=== PATIENT | female | born 1995 | race Caucasian/White ===

== ENCOUNTER → 2018-06-01 13:00 | Outpatient (CLI) | payer OTHER | END | disposition home or self-care (01) | LOC: D.MRI 13:00 | PROVIDERS: ATTEND Nurse Practitioner Family | DX: M41.85 Other forms of scoliosis, thoracolumbar region (principal) ==

== ENCOUNTER 2019-01-23 21:37 | Emergency (ER) | payer MEDICAID ==
[~2019-01-23] VITALS: Ht 170.2 cm; Wt 100.0 kg
[2019-01-23 21:51] VITALS: Ht 170.2 cm; Wt 100.0 kg
[2019-01-23] MEDS ORDERED: [UNRECOGNIZED DRUG - REMARK] (21:56)
[2019-01-23] MEDS ORDERED: BIRTH CONTROL (21:56)
[2019-01-23] MEDS ORDERED: UNK CHOLESTEROL MED (21:57)
[2019-01-23] MEDS ORDERED: TORADOL10 MG PO (23:15)
[2019-01-23 23:24] VITALS: BP 123/66
== END 2019-01-23 23:25 | disposition home or self-care (01) ==
LOC: D.ER 21:37
DX: M25.512 Pain in left shoulder (principal); R51 Headache; S13.4XXA Sprain of ligaments of cervical spine, initial encounter; V47.0XXA Car driver injured in collision with fixed or stationary object in nontraffic accident, initial encounter; Y93.9 Activity, unspecified; Y92.9 Unspecified place or not applicable; S29.012A Strain of muscle and tendon of back wall of thorax, initial encounter; E78.5 Hyperlipidemia, unspecified

== ENCOUNTER 2019-04-26 22:37 | Emergency (ER) | payer OTHER ==
[~2019-04-26] VITALS: Ht 170.2 cm; Wt 113.6 kg
[~2019-04-26 22:37] MED LIST: BIRTH CONTROL; TORADOL10 MG PO; UNK CHOLESTEROL MED; [UNRECOGNIZED DRUG - REMARK]
[2019-04-26 22:42] VITALS: BP 131/79; Ht 170.2 cm; Wt 113.6 kg
[2019-04-27] MEDS ORDERED: ZPAK PO (00:17)
[2019-04-27] MEDS ORDERED: PROAIR HFA8.5 G1 INH (00:17)
== END 2019-04-27 01:04 | disposition home or self-care (01) ==
LOC: D.ER 22:37
DX: J40 Bronchitis, not specified as acute or chronic (principal); E78.5 Hyperlipidemia, unspecified

== ENCOUNTER 2019-05-02 10:59 | Emergency (ER) | payer OTHER ==
[~2019-05-02] VITALS: Ht 170.2 cm; Wt 90.9 kg
[~2019-05-02 10:59] MED LIST changes: +PROAIR HFA8.5 G1 INH; +ZPAK PO
[2019-05-02 11:05] VITALS: BP 111/73; Ht 170.2 cm; Wt 90.9 kg
== END 2019-05-02 11:27 | disposition home or self-care (01) ==
LOC: D.ER 10:59
DX: J06.9 Acute upper respiratory infection, unspecified (principal); E78.5 Hyperlipidemia, unspecified

== ENCOUNTER 2019-11-17 20:42 | Emergency (ER) | payer MEDICAID ==
[~2019-11-17] VITALS: Ht 170.2 cm; Wt 81.6 kg
[2019-11-17 20:51] VITALS: Ht 170.2 cm; Wt 81.6 kg
[2019-11-17 22:15] VITALS: BP 126/82
== END 2019-11-17 22:15 | disposition home or self-care (01) ==
LOC: D.ER 20:42
DX: R05 Cough (principal); J02.0 Streptococcal pharyngitis

== ENCOUNTER 2020-06-02 12:01 | Emergency (ER) | payer MEDICAID ==
[~2020-06-02] VITALS: Ht 170.2 cm; Wt 113.6 kg
[2020-06-02 12:07] VITALS: Ht 170.2 cm; Wt 113.6 kg
[2020-06-02 12:45] LABS: BASOPHILS 0.1 % (0-2); EOSINOPHILS 3.2 % (0-7); HEMATOCRIT 42.4 % (36.0-48.0); HEMOGLOBIN 14.2 g/dL (12-16); IMMATURE GRANULOCYTES 0.7 % (0-5); LYMPHOCYTE ABS# 1.79 10x3/uL (1.18-3.74); MCH 29.5 pg (26.0-34.0); MCHC 33.5 g/dL (31.0-37.0); MEAN PLATELET VOLUME 8.8 fL (7.4-10.4); MONOCYTES 6.3 % (2-11); NEUTROPHIL ABS# 6.66 10x3/uL (1.56-6.13); NEUTROPHILS 70.7 % (40-80); PLATELET COUNT 268 10x3/uL (130-400); RBC 4.82 10x6/uL (4.00-5.40); RDW 12.9 % (11.5-14.5); WBC 9.4 10x3/uL (4.8-10.8)
[2020-06-02 12:52] LABS: CALC OSMOLALITY 277 mosm/kg (275-300); CALCIUM 9.3 mg/dL (8.5-10.1); CARBON DIOXIDE 24.9 mmol/L (21.0-32.0); CHLORIDE - SERUM 105 mmol/L (98-107); CREATININE - SERUM 0.7 mg/dL (0.6-1.3); GLUCOSE 128 mg/dL (74-106); POTASSIUM - SERUM 3.5 mmol/L (3.5-5.1); SODIUM 138 mmol/L (136-145); UREA NITROGEN 12 mg/dL (7-18); eGFR NON AFRICAN AMERICAN > 90 mL/min (90-120)
[2020-06-02 12:58] LABS: ALBUMIN 3.6 g/dL (3.4-5.0); ALKALINE PHOSPHATASE 128 U/L (30-120); ALT (SGPT) 83 U/L (10-68); BILIRUBIN - TOTAL 0.38 mg/dL (0.2-1.3); PROTEIN - SERUM 7.8 g/dL (6.4-8.2)
[2020-06-02] MEDS ORDERED: OMNICEF300 MG PO (15:11)
[2020-06-02] MEDS ORDERED: BROMFED-DM COU473 ML PO (15:11)
[2020-06-02 15:30] VITALS: BP 129/80
== END 2020-06-02 15:31 | disposition home or self-care (01) ==
LOC: D.ER 12:01
PROVIDERS: Family Medicine
DX: J18.9 Pneumonia, unspecified organism (principal); R09.89 Other specified symptoms and signs involving the circulatory and respiratory systems; R05 Cough; E78.5 Hyperlipidemia, unspecified